=== PATIENT | female | born 1970 | race Caucasian/White ===

== ENCOUNTER → 2020-06-28 08:50 | Outpatient (CLI) | payer OTHER ==
[2014-04-04 14:29] VITALS: BMI 27.1
[~2020-06-28 08:50] MED LIST: CHRONULAC30 ML PO; EFFEXOR XR150 MG PO; HYDROCHLOROTHIA25 MG PO; IBUPROFEN800 MG; MINIVELLE1 EAC1 TRANSDERM; NORCO 7.5/325 T1 TA1 PO; PERCOCET 10/3251 TA1 PO; PRILOSEC20 MG PO; XANAX1 MG PO
== END | disposition home or self-care (01) ==
LOC: D.RAD 08:50
PROVIDERS: ATTEND Internal Medicine Gastroenterology
DX: R93.3 Abnormal findings on diagnostic imaging of other parts of digestive tract (principal)

== ENCOUNTER → 2020-07-18 14:56 | Outpatient (CLI) | payer OTHER ==
[2014-04-04 14:29] VITALS: BMI 27.1
== END | disposition home or self-care (01) ==
LOC: D.RAD 14:56
PROVIDERS: ATTEND Internal Medicine Gastroenterology
DX: R10.84 Generalized abdominal pain (principal); Q40.0 Congenital hypertrophic pyloric stenosis